=== PATIENT | female | born 1985 | race Caucasian/White ===

== ENCOUNTER 2018-11-05 14:46 | Emergency (ER) | payer OTHER ==
[~2018-11-05] VITALS: Ht 172.7 cm; Wt 136.1 kg
[2018-11-05 16:10] LABS: URINE BLOOD NEGATIVE (Negative); URINE CLARITY CLEAR; URINE COLOR YELLOW; URINE GLUCOSE-RANDOM* NEGATIVE (Negative); URINE KETONES NEGATIVE (Negative); URINE LEUKOCYTES-REFLEX NEGATIVE (Negative); URINE NITRITE-REFLEX NEGATIVE (Negative); URINE PROTEIN (DIPSTICK) 1+ (Negative); URINE SPECIFIC GRAVITY >= 1.030 (1.005-1.035)
[2018-11-05 16:11] LABS: ICTOTEST (BILI CONFIRMATORY) Negative (Negative); URINE BILIRUBIN NEGATIVE (Negative)
[2018-11-05 16:17] LABS: BACTERIA-REFLEX None Seen /HPF (None Seen); CASTS None Seen /LPF (None Seen); MUCUS >6 Heavy strn/LPF (None Seen); SQUAMOUS >10 Many /LPF (0-3); URINE RBC None Seen /HPF (0-2); URINE WBC-REFLEX 0-5 Rare /HPF (0-5)
[2018-11-05 16:18] LABS: CALCIUM OXALATE 0-3 Few /LPF (None Seen)
[2018-11-05] MEDS ORDERED: NORCO 5-325 TA1 EAC1 PO (17:38)
[2018-11-05] MEDS ORDERED: NORFLEX100 MG PO (17:38)
[2018-11-05] MEDS ORDERED: NAPROSYN500 MG PO (17:38)
[2018-11-05 18:12] VITALS: BP 146/68
== END 2018-11-05 18:02 | disposition home or self-care (01) ==
LOC: ER 14:46
PROVIDERS: Physician Assistant
DX: S39.012A Strain of muscle, fascia and tendon of lower back, initial encounter (principal); S86.812A Strain of other muscle(s) and tendon(s) at lower leg level, left leg, initial encounter; W01.0XXA Fall on same level from slipping, tripping and stumbling without subsequent striking against object, initial encounter; Y92.89 Other specified places as the place of occurrence of the external cause; Y93.89 Activity, other specified; Y99.8 Other external cause status

== ENCOUNTER 2018-12-06 12:14 | Emergency (ER) | payer OTHER ==
[~2018-12-06] VITALS: Ht 175.3 cm; Wt 108.9 kg
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
[~2018-12-06 12:14] MED LIST: NAPROSYN500 MG PO; NORCO 5-325 TA1 EAC1 PO; NORFLEX100 MG PO
[2018-12-06] MEDS ORDERED: CYMBALTA60 MG PO (13:25)
[2018-12-06] MEDS ORDERED: PREGABALIN150 MG PO (13:25)
[2018-12-06] MEDS ORDERED: NORFLEX100 MG PO (14:14)
[2018-12-06] MEDS ORDERED: NAPROSYN500 MG PO (14:14)
[2018-12-06 14:50] VITALS: BP 131/80
== END 2018-12-06 14:56 | disposition home or self-care (01) ==
LOC: ER 12:14
DX: S13.9XXA Sprain of joints and ligaments of unspecified parts of neck, initial encounter (principal); M43.6 Torticollis; M25.511 Pain in right shoulder; Z98.890 Other specified postprocedural states; G89.29 Other chronic pain; M54.5 Low back pain; Z88.0 Allergy status to penicillin; Z88.2 Allergy status to sulfonamides; Z88.8 Allergy status to other drugs, medicaments and biological substances; V89.2XXA Person injured in unspecified motor-vehicle accident, traffic, initial encounter; Y93.89 Activity, other specified; Y92.89 Other specified places as the place of occurrence of the external cause; Y99.8 Other external cause status